=== PATIENT | male | born 1990 | race African-American/Black ===

== ENCOUNTER 2017-05-27 20:30 | Emergency (ER) | payer MEDICAID ==
[~2017-05-27] VITALS: Ht 175.3 cm; Wt 93.9 kg
[2017-05-27 21:00] VITALS: BP 103/40
[2017-05-27] MEDS ORDERED: ROBAXIN-750750 MG PO (21:29)
[2017-05-27] MEDS ORDERED: IBUPROFEN600 MG ORAL (21:29)
--- NOTE | 2017-05-27 21:29 | Emergency Room Report ---
History of Present Illness General Chief Complaint: Lower Back Pain or Injury Source: Patient Present Illness HPI 26-year-old M p/w back pain for 1 day. Patient states pain started when he was lifting heavy weights. Pain is localized to bilateral lower back, sharp in nature, radiating down leg. Movement worsens pain. There are no alleviating factors. Patient took a muscle relaxant with minimal relief. Patient has experienced this similar pain in the past which spontaneously went away Denies trauma. Denies lower extremity weakness/numbness, no bowel/bladder retention or incontinence, saddle anesthesia. Denies fever, chills, abdominal pain, n/v, dysuria/hematuria. No history of IVDA Allergies: Coded Allergies: No Known Allergies (Unverified , 05/27/17) Patient History Past Medical History: see triage record Past Surgical History: none Pertinent Family History: none Reviewed Nursing Documentation: PMH: Agreed; PSxH: Agreed Nursing Documentation-PMH Past Medical History: No Stated History Review of Systems All Other Systems: negative except mentioned in HPI Physical Exam Vital Signs Date Time Temp Pulse Resp B/P (MAP) Pulse Ox O2 Delivery O2 Flow Rate FiO2 05/27/17 20:23 98.0 73 16 103/40 99 Room Air 98.1 Sp02 EP Interpretation: reviewed, normal General Appearance: alert, GCS 15, non-toxic, moderate distress Head: normocephalic, atraumatic Eyes: bilateral eye normal inspection, bilateral eye PERRL, bilateral eye EOMI ENT: normal ENT inspection, normal pharynx, normal voice, moist mucus membranes Neck: normal inspection, full range of motion, supple Respiratory: normal inspection, lungs clear, normal breath sounds, no respiratory distress, no retraction, no wheezing, speaking full sentences, chest symmetrical Cardiovascular #1: normal inspection, regular rate, rhythm, normal capillary refill Cardiovascular #2: 2+ radial (R), 2+ radial (L) Gastrointestinal: normal inspection, non tender, soft, non-distended, no guarding Genitourinary: no CVA tenderness Musculoskeletal: other - Bilateral lower lumbar paraspinal tenderness, no midline tenderness, full range of motion of all extremities Neurologic: normal inspection, alert, oriented x3, responsive, motor strength/ tone normal, sensory intact, normal gait, speech normal, other - Motor strength is 5 out of 5 bilateral lower extremities Psychiatric: normal inspection, judgement/insight normal, memory normal Skin: normal inspection, normal color, no rash, warm/dry, well hydrated, normal turgor Medical Decision Making Diagnostic Impression: Primary Impression: Low back pain ER Course 26-year-old male p/w back pain after lifting DDX: Likely musculoskeletal back pain vs. muscular strain vs. sciatica Lumbar fracture is unlikely given patients age, no midline tenderness, no history of trauma, and that patient is ambulatory. Therefore, at this time no imaging is indicated Serious diagnoses such as cord compression, epidural abscess is unlikely in this patient given the clinical scenario and abscess of neurological symptoms or findings. Patient appears nontoxic. Plan: Toradol, robaxin ER course: Patient has remained nontoxic appearing and ambulatory in the ED. Pain improved w/ medications Disposition: Patient will be discharged to home with prescription of Robaxin Strict precautions discussed with patient on when to emergently return to the ED which includes severe/worsening back pain, leg weakness/numbness, urinary retention/incontinence, fever or chills, which may indicate severe illness. Patient is to follow up with their PMD within 5 days. Patient agrees with plan. Please note that this Emergency Department Report was dictated using [employer] fish processing technology software, occasionally this can lead to erroneous entry secondary to interpretation by the dictation equipment. Last Vital Signs Date Time Temp Pulse Resp B/P (MAP) Pulse Ox O2 Delivery O2 Flow Rate FiO2 05/27/17 21:00 98.1 73 16 103/40 99 Room Air 98.1 Disposition: HOME, SELF-CARE Condition: Improved Scripts Ibuprofen* (MOTRIN*) 600 Mg Tablet 600 MG ORAL Q8H PRN for For Pain, #30 TAB 0 Refills Prov: Jaimie Solorzano M.D. 05/27/17 Methocarbamol* (ROBAXIN-750*) 750 Mg Tablet 750 MG PO QID, #28 TAB 0 Refills Prov: Jaimie Solorzano M.D. 05/27/17 Patient Instructions: Lumbosacral Strain Jaimie Solorzano M.D. May 27, 2017 21:28
[2017-05-27] MEDS ORDERED: Ketorolac 30mg Inj IM ONE (21:30)
[2017-05-27] MEDS ORDERED: Methocarbamol 750mg tab ORAL ONE (21:30)
[2017-05-27 22:09] VITALS: BP 103/40
== END 2017-05-27 22:10 | disposition home or self-care (01) ==
LOC: EDBD 20:30 → EMR 21:07
DX: M54.5 Low back pain (principal)
CPT/HCPCS: 96372; 99284; J1885